=== PATIENT | female | born 1965 | race Caucasian/White ===

== ENCOUNTER 2024-10-14 16:39 | Emergency (ER) | payer OTHER, SELFPAY ==
--- NOTE | 2024-10-14 16:52 | EKG_ITS ---
[place] [id number] [place] [id number] Test Date: 2024-10-14 Pat Name: Nadia Posada Department: [facility] Room: Gender: Female [employer]ch [employer]ce Baster: ALEKS : 1965 Requested By: Order Number: [id number] Reading MD: Oli Son MD Measurements Intervals [place] Rate: 91 P: 36 SC: 126 QRS: 29 QRSD: 92 T: 53 QT: 400 QTc: 492 Interpretive Statements Sinus rhythm with frequent premature ventricular complexes Electronically Signed On 10-15-2024 8:40:43 PDT by Oli Son MD
[2024-10-14 17:02] VITALS: BP 136/81; PULSE 96; RESP 17; TEMP 36.6; O2SAT 97; BMI 47.2
--- NOTE | 2024-10-14 18:47 | ED.BACK ---
HPI - Back Pain/Injury General Chief Complaint: Back Pain/Injury Stated Complaint: irregular heart beat Time Seen by Provider: 10/14/24 17:57 Source: patient History of Present Illness HPI Narrative: 59-year-old female with no significant past medical history presents with right-sided lower back pain despite taking muscle relaxant and Tylenol after moving a suitcase that was 40 lb was seen at walk-in clinic told to come to the ER as they thought they saw an irregular heartbeat on the EKG. When she got here EKG showed PVC sinus rhythm otherwise no ST T wave changes. Patient does report she drinks Dr. Nugent she used to drink 24 packs a day she is down to 4 cans a day now. Patient is not having any active chest pain shortness of breath back pain leg pain leg swelling. Other than what is stated 14 point review of system is negative Related Data Home Medications ?Medication ?Instructions ?Recorded ?Confirmed MULTIVITAMIN (Multivitamin 1 cap PO EVERY DAY ##0 12/13/09 -) DICLOFENAC SODIUM (VOLTAREN) 75 mg PO QDAY ##0 09/05/10 DOCUSATE SODIUM 100 mg PO QDAY ##0 09/05/10 [PREVERA] 20 mg PO QID ##0 09/05/10 calcium polycarbophil 625 mg 1 tab PO QDAY ##0 09/05/10 tablet (FiberCon) escitalopram oxalate 20 mg tablet 20 mg PO QDAY ##0 09/05/10 (Lexapro) ferrous fumarate 324 mg (106 mg 324 mg PO QDAY ##0 09/05/10 iron) tablet CA/FE/FOLIC ACID/VIT A/VIT B ##0 09/23/10 (# VITAMIN) Fluticasone Propionate (FLONASE) 1 spray intranasal PRN ##0 11/07/10 ibuprofen 800 mg tablet 800 mg PO TID ##0 11/07/10 Previous Rx's ?Medication ?Instructions ?Recorded diclofenac sodium 75 mg 75 mg PO BID PRN pain #30 tabs 10/14/24 tablet,delayed release prednisone 20 mg tablet 20 mg PO BID #10 tabs 10/14/24 Allergies Allergy/AdvReac Type Severity Reaction Status Date / Time INGREDIENT: NKDA - NO KNOWN Allergy Unknown Uncoded 10/14/24 17:03 DRUG ALLERGIES Review of Systems Review of Systems ROS Unobtainable: All systems reviewed & are unremarkable except as noted in HPI and below Patient History Surgical History (Updated 08/04/17 @ 05:49 by Conversion Provider) Status post surgery (08/05/10) Social History Smoking Status: Never smoker Smoking Status: Never smoker Exam Narrative Exam Narrative: GENERAL: [59] year old patient appears stated age. Well-developed patient, in mild distress. HEAD: Atraumatic. Normocephalic. EYES: Pupils equal round and reactive. Extraocular motions intact. No scleral icterus. No injection or drainage. ENT: Nose without bleeding, purulent drainage. Throat without erythema, tonsillar hypertrophy or exudate. Airway patent. NECK: Trachea midline. Non tender CARDIOVASCULAR: Regular rate and rhythm without murmurs, gallops, or rubs. RESPIRATORY: Clear to auscultation. Breath sounds equal bilaterally. No wheezes, rales, or rhonchi. GASTROINTESTINAL: Abdomen soft, non-tender, nondistended. EXTREMITIES: No edema or joint tenderness. BACK: L sided paralumbosacral TTP L4-5 F6nxmnpsa deformity or crepitance. No flank tenderness. NEURO: AOx3. SKIN: No rash or erythema of visible areas Initial Vital Signs Initial Vital Signs: Vital Signs Temperature 97.9 F 10/14/24 17:02 Pulse Rate 96 H 10/14/24 17:02 Respiratory Rate 17 10/14/24 17:02 Blood Pressure 136/81 10/14/24 17:02 Pulse Oximetry 97 10/14/24 17:02 Oxygen Delivery Method Room Air 10/14/24 17:02 Procedures [facility] [place] Procedure Name of Procedure: Trigger point injection. Patient dropped draped and prepped in a sterile fashion using 22-1/2 gauge needle with a 5 cc syringe containing 4 mL of 2% lidocaine without epinephrine and 40 mg of 1 mL Kenalog injected into lumbosacral region L5-S1 of the right side of the b back in prone position without any complication. 0 mL estimated blood loss Course Orders Ordered: ED Orders 10/14/24 16:48 EKG-12 Lead Stat Discontinued Medications Acetaminophen (Acetaminophen 325 Mg Tablet) 975 mg PO NOW ONE Stop: 10/14/24 19:01 Last Admin: 10/14/24 19:27 Dose: 975 mg Documented By: BARB Ketorolac Tromethamine (Ketorolac 30 Mg/Ml Vial) 30 mg IM NOW ONE Stop: 10/14/24 19:01 Last Admin: 10/14/24 19:26 Dose: 30 mg Documented By: BARB Lidocaine HCl (Lidocaine 2% Inj Sdv 5ml) 4 ml INJ NOW ONE Stop: 10/14/24 19:00 Last Admin: 10/14/24 19:28 Dose: 4 ml Documented By: BARB Triamcinolone (Triamcinolone 40 Mg/Ml Vial) 40 mg INJ NOW ONE Stop: 10/14/24 19:00 Last Admin: 10/14/24 19:30 Dose: 40 mg Documented By: BARB Vital Signs Vital signs: Vital Signs - 8 hr 10/14/24 17:02 Temperature 97.9 F Pulse Rate 96 H Respiratory Rate 17 Blood Pressure 136/81 Pulse Oximetry 97 Oxygen Delivery Method Room Air MDM - Back Pain/Injury MDM Narrative Medical decision making narrative: Vital signs, nurse triage note, medication list, previous ER visits, and all imaging studies reviewed. Patient given a trigger point injection for which patient tolerated procedure with no complications. Patient will be discharged on diclofenac and prednisone. Differential diagnosis arthritis, sprain, strain, spondylosis, spondylolysis, herniated disc, sciatica, piriformis syndrome. Discharge Plan Departure Patient Disposition: Home Clinical Impression: Acute back pain Instructions: DI for Low Back Pain Activity Restrictions/Additional Instructions: Return with new or worsening symptoms. Take your medicines directed. Follow up PCP in 1-2 weeks if no improvement in symptoms. Prescriptions: New diclofenac sodium 75 mg tablet,delayed release (DR/EC) 75 mg PO BID PRN (Reason: pain) Qty: 30 0RF prednisone 20 mg tablet 20 mg PO BID Qty: 10 0RF No Action MULTIVITAMIN (Multivitamin -) 1 cap PO EVERY DAY Qty: 0 escitalopram oxalate [Lexapro] 20 MG tablet 20 mg PO QDAY Qty: 0 calcium polycarbophil [FiberCon] 625 MG tablet 1 tab PO QDAY Qty: 0 ferrous fumarate 324 MG tablet 324 mg PO QDAY Qty: 0 DOCUSATE SODIUM 100 mg PO QDAY Qty: 0 DICLOFENAC SODIUM (VOLTAREN) 75 mg PO QDAY Qty: 0 [PREVERA] 20 mg PO QID Qty: 0 CA/FE/FOLIC ACID/VIT A/VIT B (# VITAMIN) Qty: 0 ibuprofen 800 MG tablet 800 mg PO TID Qty: 0 Fluticasone Propionate (FLONASE) 1 spray Intranasal PRN Qty: 0 Stand Alone Forms: Patient Portal/API
[2024-10-14] MEDS: KETOROLAC 30 MG/ML VIAL IM (19:26)
[2024-10-14] MEDS: ACETAMINOPHEN 325 MG TABLET 975 MG PO (19:27)
[2024-10-14] MEDS: LIDOCAINE 2% INJ SDV 5ML 4 ML INJ (19:28)
[2024-10-14] MEDS: TRIAMCINOLONE 40 MG/ML VIAL INJ (19:30)
[2024-10-14 20:06] VITALS: BP 134/83; PULSE 57; RESP 18; O2SAT 99
== END 2024-10-14 20:07 | disposition home or self-care (01) ==
PROVIDERS: Emergency Provider Family Medicine
DX: M54.50 Low back pain, unspecified (principal); I49.3 Ventricular premature depolarization
CPT/HCPCS: 20552; 93005; 93010; 96372; 99283; 99284; J1885